=== PATIENT | female | born 2000 ===

== ENCOUNTER 2020-03-21 14:39 | Emergency (ER) | payer OTHER | END 2020-03-21 18:09 | disposition home or self-care (01) | LOC: ER 14:39 | DX: G43.809 Other migraine, not intractable, without status migrainosus (principal); B96.0 Mycoplasma pneumoniae [M. pneumoniae] as the cause of diseases classified elsewhere; Z03.818 Encounter for observation for suspected exposure to other biological agents ruled out; R50.9 Fever, unspecified ==

== ENCOUNTER 2020-05-25 03:48 | Inpatient (IN) | payer OTHER ==
[~2020-05-25] VITALS: Ht 149.9 cm; Wt 49.9 kg
[~2020-05-25 03:48] MED LIST: BETAXOLOL HCL10 MG
== END 2020-05-26 17:32 | disposition home or self-care (01) | DRG 310 ==
LOC: ER 03:48 → MEDI 12:36 → SEC-K 12:36 → MEDI 14:50
PROVIDERS: ADMIT Internal Medicine; ATTEND Internal Medicine
PROC: B24DZZZ Ultrasonography of Pediatric Heart (ICD-10-PCS; principal; 2020-05-25)
PROC: 4A12X4Z Monitoring of Cardiac Electrical Activity, External Approach (ICD-10-PCS; 2020-05-25)
DX: I49.8 Other specified cardiac arrhythmias (principal); E87.6 Hypokalemia; R00.2 Palpitations; R00.8 Other abnormalities of heart beat; Z03.818 Encounter for observation for suspected exposure to other biological agents ruled out

== ENCOUNTER 2021-08-26 08:49 | Day surgery (SDC) | payer OTHER ==
[~2021-08-26 08:49] MED LIST changes: +MIRALAX17 GM PO; +MONODOX100 MG PO
[2021-08-26] MEDS ORDERED: PERCOCET 5-3251 EACH PO (11:02)
[2021-08-26] MEDS ORDERED: RECTICARE30 GM TOP (11:03)
== END 2021-08-26 17:20 | disposition home or self-care (01) ==
LOC: CIR.AMB 08:49
PROVIDERS: ATTEND Surgery
DX: K60.1 Chronic anal fissure (principal); K62.4 Stenosis of anus and rectum; Z20.822 Contact with and (suspected) exposure to COVID-19

== ENCOUNTER 2022-01-28 00:41 | Emergency (ER) | payer OTHER ==
[~2022-01-28] VITALS: Ht 149.9 cm; Wt 52.2 kg
[~2022-01-28 00:41] MED LIST changes: +PERCOCET 5-3251 EACH PO; +RECTICARE30 GM TOP
[2022-01-28] MEDS ORDERED: BENADRYL25 MG PO (05:07)
[2022-01-28] MEDS ORDERED: PEPCID40 MG PO (05:07)
[2022-01-28] MEDS ORDERED: MEDROL8 MG PO (05:07)
== END 2022-01-28 05:13 ==
LOC: ER 00:41
DX: L50.0 Allergic urticaria (principal)